=== PATIENT | female | born 1950 | race Caucasian/White ===

== ENCOUNTER 2017-06-14 05:39 | Inpatient (IN) | payer MEDICARE, OTHER ==
[2017-06-11 09:10] LABS: BASOPHILS 0.4 % (0-2); EOSINOPHILS 2.3 % (0-7); HEMATOCRIT 44.1 % (36.0-48.0); HEMOGLOBIN 15.4 g/dL (12-16); IMMATURE GRANULOCYTES 0.2 % (0-5); LYMPHOCYTES 28.2 % (15-50); MCH 32.5 pg (26.0-34.0); MCHC 34.9 g/dL (31.0-37.0); MEAN PLATELET VOLUME 10.4 fL (7.4-10.4); NEUTROPHILS 61.9 % (40-80); PLATELET COUNT 238 10x3/uL (130-400); RBC 4.74 10x6/uL (4.00-5.40); WBC 8.2 10x3/uL (4.8-10.8)
[2017-06-11 09:17] LABS: ANION GAP 15.6 mmol/L (8-16); CALCIUM 9.2 mg/dL (8.5-10.1); CARBON DIOXIDE 24.5 mmol/L (21.0-32.0); CREATININE - SERUM 0.9 mg/dL (0.6-1.3); POTASSIUM - SERUM 4.1 mmol/L (3.5-5.1)
[2017-06-11 09:22] LABS: APTT 35.4 SECONDS (22.8-39.4); INR 0.94 (0.85-1.17); PROTIME 12.4 SECONDS (11.6-15.0)
[2017-06-11 10:32] LABS: APPEARANCE HAZY (CLEAR); BILIRUBIN NEGATIVE (NEGATIVE); COLOR YELLOW (YELLOW); GLUCOSE NEGATIVE (NEGATIVE); KETONE NEGATIVE (NEGATIVE); NITRITE NEGATIVE (NEGATIVE); PROTEIN NEGATIVE (NEGATIVE); UROBILINOGEN NORMAL (NORMAL)
[2017-06-11 10:33] LABS: BACTERIA FEW /hpf (NONE SEEN); EPITHELIAL CELLS 0-5 /hpf (0-5); RED CELLS - URINE RARE /hpf (0-5); WHITE CELLS - URINE RARE /hpf (0-5)
[~2017-06-14 05:39] MED LIST: ADVIL PM CAPLET1 TAB PO; CENTRUM SILVER1 TA1 PO; CITRUCEL500 MG PO; DULCOLAX STOOL100 MG PO; ESTRACE 0.5 MG0.5 MG PO; GLUCOSAMINE & C1 CAP PO; SYNTHROID75 MCG PO; TUMS500 MG PO; VITAMIN B-122500 MCG PO; ZESTORETIC 20-1 EACH PO
[2017-06-14 09:02] VITALS: BP 153/76; BMI 28.8
[2017-06-14 15:07] VITALS: BP 139/67
--- NOTE | 2017-06-14 15:10 | NUR ---
RECEIVED TO ROOM 2222 FROM RECOVERY ROOM VIA STRETCHER. IV TO L WRIST PATENT. DRESSING TO R SHOULDER C/D/I. IMMOBILIZER/SLING IN USE TO R ARM. RADIAL PULSES PRESENT AND STRONG. SCD'S IN USE TO BILAT LEGS. VSS. DENIES ANY COMPLAINT OF PAIN AT THIS TIME. AT BEDSIDE.
[2017-06-14 15:11] VITALS: BP 134/67; BMI 28.8
--- NOTE | 2017-06-14 17:36 | NUR ---
CONTINUES TO DENY ANY COMPLAINT OF PAIN AT THIS TIME. RADIAL PULSES PRESENT. FAMILY AT BEDSIDE.
[2017-06-14 20:00] VITALS: BP 102/36
--- NOTE | 2017-06-14 20:00 | NUR ---
ASSESSMENT PER FLOWSHEET. DRESSING TO RT SHOULDER C/D/I. WITH SLING IMMOBILIZER ON. DENIES PAIN. BRISK CAPILLARY REFILL. PULSES PRESENT. IV PATENT LEFT WRIST OF 1/2NS INFUSING AT 50CC'S/HR. PRODUCTION GEAR CUTTER NOT SET UP AT THIS TIME PT DENIES PAIN. SR UP X2 CALL LIGHT WITHIN REACH SPOUSE AT BEDSIDE.
--- NOTE | 2017-06-14 20:30 | NUR ---
UP WITH HELP TO BR VOIDS FREELY.
--- NOTE | 2017-06-14 21:15 | NUR ---
MEDS GIVEN PER MAR.
--- NOTE | 2017-06-14 22:30 | NUR ---
RESTING QUIETLY SPOUSE AT BEDSIDE DENIES PAIN
--- NOTE | 2017-06-15 | NUR ---
EYES CLOSED RESPIRATIONS WITH EASE AND UNLABORED.
--- NOTE | 2017-06-15 02:00 | NUR ---
RESTING QUIETLY RESPIRATIONS WITH EASE AND UNLABORED.
[2017-06-15 04:00] VITALS: BP 109/44
--- NOTE | 2017-06-15 04:30 | NUR ---
AWAKE DENIES PAIN OR DISCOMFORT.
--- NOTE | 2017-06-15 06:28 | NUR ---
AWAKE WATCHING TV WITH SPOUSE. DENIES NEEDS.
--- NOTE | 2017-06-15 06:44 | NUR ---
C/O INCISIONAL PAIN RATES PAIN LEVEL #4-5 PERCOCET 10 TAB ONE PO GIVEN FOR PAIN CONTROL.
[2017-06-15] MEDS ORDERED: PERCOCET 10/3251 TA1 PO (08:39)
[2017-06-15 09:12] VITALS: BP 132/75
--- NOTE | 2017-06-15 11:43 | NUR ---
DISCHARGE PAPERS AND INSTRUCTIONS GIVEN, QUESTIONS ANSWERED, IV REMOVED TIP INTACT, DISCHARGED PER WC WITH BELONGINGS
--- NOTE | 2017-06-25 14:00 | OP ---
PATIENT NAME: REHANA BROWNING MEDICAL RECORD: [id number] :46 LOCATION:[id number] ADMISSION DATE:06/14/17 SURGEON: ZAMZAM MOLINA MD DATE OF OPERATION: 06/14/2017 PREOPERATIVE DIAGNOSIS: Rotator cuff arthropathy with severe tendinitis. POSTOPERATIVE DIAGNOSIS: Rotator cuff arthropathy with severe tendinitis. PROCEDURE: 1. Superior capsular reconstruction. 2. Right biceps tenodesis. SURGEON: Zamzam Molina MD ANESTHESIA: General. INTRAOPERATIVE COMPLICATIONS: None. SUMMARY OF PATHOLOGIC FINDINGS: The patient had a very profound rotator cuff tear that required superior capsular reconstruction along with severe biceps tenodesis. OPERATIVE SUMMARY IN DETAIL: After obtaining the appropriate preoperative orthopedic surgery consent as well as anesthetic consultation, evaluation and clearance, the patient was brought to the operating room and placed on the operating table in supine position. After general laryngeal mask airway was administered, the patient was placed in a beach chair position. All pressure points were well padded. She was held firmly to the operating table using vacuum pack suction system. Right lower extremity and shoulder were prepped and draped in routine sterile fashion. The arm was held with Trimano arm holding device. An anterolateral incision was made from the acromioclavicular joint over the anterior one-third of the acromion. This was taken down through the deltoid approximately 3 cm. Subperiosteal dissection was utilized for flexion of the deltoid showing the patient's pathology. Sagittal saw was then used to perform acromioplasty at the level of acromioclavicular joint as well as the distal clavicle excision. Having completed this, mobilization of the anterior and posterior aspect of the rotator cuff was undergone as well as mobilization of the withdrawn lateral side as well as the withdrawn supraspinatus tendon. Reapproximation was not optional, it was direct rotator cuff repair. For this reason, the Arthrex dermal patch was brought in and sewn to the superior aspect of the glenoid using three 2.9 PushLocks. After it was tailored on the back table, this was then anchored laterally using a SpeedBridge from Arthrex with excellent anchorage under the appropriate tension. A iory-tr-nwet reapproximation of the subscapularis and the infraspinatus was then undertaken with FiberWire resulting in a good overall seal of the rotator cuff and reconstruction. Please note that prior to final closure of the FCR, the biceps tendon was tenotomized at the midpoint of the bicipital groove using an Arthrex Bio-Tenodesis screw. Having completed the complete repair, copious irrigation was then followed by reapproximation of the deltoid back to the acromion using an imbricated sujah-sxzo-gwsd suture in a transosseous fashion using FiberWire. Further deltoid fascial closure was also achieved with FiberWire. This was then closed with #1 Vicryl, 2-0 Vicryl, and skin balwinder. Sterile dressings were applied. The patient was awakened, taken to recovery in stable condition. All final needle and sponge counts were correct. OPERATIVE REPORT [id number] REHANA BROWNING TRANSINT:[id number] Voice Confirmation ID: [id number] DOCUMENT ID: [id number] TRACY IRVIN, ZAMZAM VEGA at 1400 CC: [id number] DICTATION DATE: 06/22/17 110 SKI PRODUCTION SUPERVISOR: 06/22/17 1139 DIS IN 06/15/17 [facility] [address] [place] [address]
== END 2017-06-15 11:54 | disposition home or self-care (01) | DRG 502 ==
LOC: D.OPS 05:39 → D.PAN 13:15 → D.MS 14:00 → D.OPS 15:06 → D.MS 06-15 11:54
PROVIDERS: ADMIT Orthopaedic Surgery
PROC: 0LU Tendons, Supplement (ICD-10-PCS; 2017-06-14)
PROC: 0LQ10ZZ Repair Right Shoulder Tendon, Open Approach (ICD-10-PCS; principal; 2017-06-14 10:35)
DX: M75.121 Complete rotator cuff tear or rupture of right shoulder, not specified as traumatic (principal); I10 Essential (primary) hypertension; M75.21 Bicipital tendinitis, right shoulder

== ENCOUNTER 2020-05-20 06:42 | Day surgery (SDC) | payer MEDICARE, BC ==
[2020-05-19 14:28] LABS: HEMATOCRIT 44.1 % (36.0-48.0); MCH 31.6 pg (26.0-34.0); MEAN PLATELET VOLUME 10.4 fL (7.4-10.4); RBC 4.74 10x6/uL (4.00-5.40); RDW 13.3 % (11.5-14.5)
[2020-05-19 14:39] LABS: ANION GAP 12.1 mmol/L (8-16); CALCIUM 8.9 mg/dL (8.5-10.1); CARBON DIOXIDE 26.7 mmol/L (21.0-32.0); CREATININE - SERUM 1.2 mg/dL (0.6-1.3); POTASSIUM - SERUM 3.8 mmol/L (3.5-5.1)
[~2020-05-20] VITALS: Ht 162.6 cm; Wt 79.4 kg
[~2020-05-20 06:42] MED LIST changes: +PERCOCET 10/3251 TA1 PO; +TUMS X-STR300 MG PO; -TUMS500 MG PO
[2020-05-20 07:31] VITALS: BP 129/61; Ht 162.6 cm; Wt 79.4 kg
[2020-05-20] MEDS ORDERED: DILAUDID2 MG PO (09:51)
--- NOTE | 2020-05-20 11:42 | NUR ---
IV D/C'D WITH CANNULA INTACT, PRESSURE HELD AND DRSG PLACE. DISCHARGE INSTRUCTIONS GIVEN TO BOTH PT AND SON, THEY VERBALIZED AN UNDERSTANDING. DISCHARGED WITH CDI AND SLING AND WAIST BELT IN PLACE
--- NOTE | 2020-05-26 13:14 | OP ---
PATIENT NAME: REHANA BROWNING MEDICAL RECORD: [id number] :46 LOCATION:.[facility] ADMISSION DATE: SURGEON: ZAMZAM MOLINA MD DATE OF OPERATION: 05/20/2020 PREOPERATIVE DIAGNOSES: Rotator cuff tear of the left shoulder with impingement syndrome. POSTOPERATIVE DIAGNOSES: Rotator cuff tear of the left shoulder with impingement syndrome plus severe biceps tendinitis. PROCEDURES: 1. Arthroscopic rotator cuff repair. 2. Arthroscopic biceps tenotomy. 3. Arthroscopic distal clavicle excision done through separate incision - 1 cm. 4. Arthroscopic subacromial decompression with acromioplasty and bursectomy, all of the left shoulder. SURGEON: Zamzam Molina MD ANESTHESIA: General. INTRAOPERATIVE COMPLICATIONS: None. SUMMARY OF PATHOLOGIC FINDINGS: The patient was indeed found to have rotator cuff tearing, severe biceps tendinitis, impingement syndrome with excoriation of the coracoacromial ligament and grade IV chondromalacia of the acromioclavicular joint. OPERATIVE SUMMARY IN DETAIL: After obtaining the appropriate preoperative orthopedic surgery consent as well as anesthetic consultation, evaluation and clearance, the patient was brought to the operating room and placed on the operating table in supine position. After adequate general laryngeal mask airway was administered, the patient was placed in the right lateral decubitus position. All pressure points were well padded to include down leg peroneal pad as well as axillary roll. The patient was held firmly to the operating table using the vacuum pack suction system. Left upper extremity and shoulder were prepped and draped in routine sterile fashion. The arm was held in the Arthrex traction boom with 30 degrees of forward flexion, 30 degrees of abduction with 10 pounds of traction laterally. At this point, the appropriate timeout was taken and agreed upon by all given the patient's unique identifiers. Arthroscopy was established in the glenohumeral joint from a posterior portal. Anterior portal was established in the anterior safe interval. Diagnostic arthroscopy did show the patient's rotator cuff tearing as noted. Transrotator cuff portal was created to debride the undersurface of the rotator cuff tearing and decorticate the footprint supraspinatus tendon. Having completed this, attention was turned to biceps tenotomy. The biceps had substantial longitudinal tearing. Therefore, tenotomy was chosen. The biceps was tenotomized at the bicipital labral junction. Attention was then turned to the subacromial space. In the subacromial space, [place] tissue ablation system was utilized to denude the undersurface of the acromion of all soft tissue elements. A 5-0 barrel bur was then used to perform acromioplasty at the level of the acromioclavicular OPERATIVE REPORT [id number] REHANA BROWNING joint. Having completed this, a separate anterior arthroscopic portal, distal clavicle was excised for 1 cm using the arthroscopic bur. Attention was then turned to the rotator cuff. Further decortication was carried out followed by placing a mattress FiberTape that was then anchored laterally with a 5.5 SwiveLock from Arthrex. Having completed this, arthroscopy portals were closed in routine interrupted fashion using 4-0 Prolene. Sterile dressings were applied. The patient was awakened and taken to recovery room in stable condition. All final needle and sponge counts were correct. TRANSINT:[id number] Voice Confirmation ID: [id number] DOCUMENT ID: [id number] TRACY IRVIN, ZAMZAM VEGA at 1314 CC: [id number] DICTATION DATE: 05/26/20 0708 ABSEILING INSTRUCTOR: 05/26/20 1126 [facility] 05/20/20 [id number] [place] [address]
== END 2020-05-20 11:30 | disposition home or self-care (01) ==
LOC: D.OPS 06:42 → D.PAN 08:30 → D.OPS 09:45 → D.PAN 11:00 → D.OPS 11:00
PROVIDERS: Anesthesiology; ATTEND Orthopaedic Surgery
DX: M75.122 Complete rotator cuff tear or rupture of left shoulder, not specified as traumatic (principal); M75.42 Impingement syndrome of left shoulder; M25.512 Pain in left shoulder